=== PATIENT | male | born 1980 | race Caucasian/White ===

== ENCOUNTER → 2017-01-26 | Outpatient (CLI) | payer BC ==
--- NOTE | 2017-01-26 17:03 | PCVCIMAG ---
APPROVED REPORT Study performed: 01/26/2017 14:51:18 EXAM: Comprehensive 2D, Doppler, and color-flow Echocardiogram Status: routine BSA: 2.47 HR: 75 bpmBP: 100/68 mmHg Rhythm: NSR Indications Murmur 2D Dimensions LVEF(%): 77.90 (>50%) IVSd: 11.19 (7-11mm)LVOT Diam: 23.47 (18-24mm) LVDd: 57.81 mm PWd: 12.22 (7-11mm) LVDs: 30.54 (25-40mm) Left Atrium: 44.83 (27-40mm) Aortic Root: 34.73 mm Smith's LVEF: 77.90 % Volumes Left Atrial Volume (Systole) Single Plane 4CH: 61.75 mLSingle Plane 2CH: 97.39 mL LA ESV Index: 32.00 mL/m2 Aortic Valve AoV Peak Eddy.: 1.39 m/s AO Peak Gr.: 7.72 mmHg Mitral Valve E/A Ratio: 1.3 MV Decel. Time: 169.42 ms MV E Max Eddy.: 1.20 m/s MV A Eddy.: 0.89 m/s Left Ventricle The left ventricle is normal size. There is normal LV segmental wall motion. There is normal left ventricular wall thickness. Left ventricular systolic function is normal. The left ventricular ejection fraction is within the normal range. LVEF is 60-65%. The left ventricular diastolic function is normal. Right Ventricle The right ventricle is normal size. The right ventricular systolic function is normal. Atria The left atrium size is normal. The right atrium size is normal. Aortic Valve The aortic valve is normal in structure trileaflet No aortic regurgitation is present. There is no aortic valvular stenosis. Mitral Valve Posterior mitral leaflet prolapse Moderately severe to severe eccentric mitral regurgitation. No evidence of mitral valve stenosis. Tricuspid Valve The tricuspid valve is normal in structure. There is no tricuspid valve regurgitation noted. Pulmonic Valve The pulmonary valve is normal in structure. There is no pulmonic valvular regurgitation. Great Vessels The aortic root is normal in size. IVC is normal in size and collapses with >50% inspiration Pericardium There is no pericardial effusion. <Conclusion> Left ventricular systolic function is normal. There is normal LV segmental wall motion. LVEF 60-65%. The aortic valve is normal in structure, trileaflet. No aortic regurgitation or stenosis Posterior mitral leaflet prolapse. Eccentric, probably moderately severe to severe regurgitation Pulmonary artery pressure could not be reliably ascertained There is no pericardial effusion.
== END | disposition home or self-care (01) ==
LOC: PCVCIMAG 14:47
PROVIDERS: ATTEND Internal Medicine
DX: I34.0 Nonrheumatic mitral (valve) insufficiency (principal); R01.1 Cardiac murmur, unspecified
CPT/HCPCS: 93306

== ENCOUNTER → 2017-02-10 | Outpatient (CLI) | payer BC | END | disposition home or self-care (01) | LOC: PCVCIMAG 15:07 | DX: I34.0 Nonrheumatic mitral (valve) insufficiency (principal) | CPT/HCPCS: 93017 ==

== ENCOUNTER → 2017-11-17 | Outpatient (CLI) | payer BC ==
[~2017-11-17] MED LIST: DIAZEPAM 10 MG TABLET. ONE; IOHEXOL 350 MG/ML 100 ML VIAL. ONE; IOHEXOL 350 MG/ML 50 ML VIAL. ONE; IV NORMAL SALINE 1000ML BAG 1,000 ML ONE; LIDOCAINE 1% Multi-Dose 50 ML VIAL. ONE; MIDAZOLAM HCL/PF 2 MG/2 ML VIAL. ONE; fentaNYL PF VIAL 100 MCG/2 ML VIAL ONE
--- NOTE | 2017-11-17 09:39 | PCVCIMAG ---
APPROVED REPORT Study performed: 11/17/2017 08:52:05 EXAM: Comprehensive 2D, Doppler, and color-flow Echocardiogram Patient Location: Echo lab Status: routine BSA: 2.21 HR: 71 bpmBP: 132/80 mmHg Rhythm: NSR Other Information Study Quality: Adequate Indications Pre-Op Mitral Valve Prolapse Murmur mitral regurgitation 2D Dimensions IVSd: 12.28 (7-11mm) LVDd: 60.32 mm PWd: 11.46 (7-11mm) LVDs: 43.05 (25-40mm) Left Atrium: 44.45 (27-40mm) Aortic Root: 32.94 mm LV Single Plane 4CH: 55.78 % LV Single Plane 2CH: 55.74 % Biplane EF: 56.9 % Volumes Left Atrial Volume (Systole) Single Plane 4CH: 130.23 mLSingle Plane 2CH: 138.59 mL LA ESV Index: 62.00 mL/m2 Aortic Valve AoV Peak Eddy.: 1.18 m/s AO Peak Gr.: 5.55 mmHgLVOT Max P.31 mmHg LVOT Max V: 0.91 m/s Mitral Valve MV Peak Gr.: 6.11 mmHg MV Mean Gr.: 1.94 mmHgE/A Ratio: 2.3 MV Decel. Time: 264.74 ms MV E Max Eddy.: 1.42 m/s MV A Eddy.: 0.61 m/s MV Max Eddy.: 5.02 m/s MV Mean Eddy.: 3.77 m/s MV VTI: 369.48 mm MV PHT: 73.61 ms MVA (PHT): 2.99 cm2 IVRT: 110.73 ms Pulmonary Valve PV Peak Eddy.: 0.80 m/sPV Peak Gr.: 2.56 mmHg Pulmonary Vein P Vein S: 0.35 m/sP Vein A: 0.32 m/s P Vein D: 0.64 m/sP Vein A Dur.: 124.6 msec P Vein S/D Ratio: 0.55 Tricuspid Valve TR Peak Dedy.: 2.23 m/s TR Peak Gr.: 19.97 mmHg Left Ventricle Left ventricle is borderline dilated. There is normal LV segmental wall motion. Borderline concentric left ventricular hypertrophy. Left ventricular systolic function is normal. The left ventricular ejection fraction is within the normal range. LVEF is 55-60%. The left ventricular diastolic function is normal. Right Ventricle The right ventricle is normal size. The right ventricular systolic function is normal. Atria Left atrium is dilated. The right atrium size is normal. Aortic Valve The aortic valve is normal in structure. No aortic regurgitation is present. There is no aortic valvular stenosis. Mitral Valve Posterior mitral valve prolapse with severe, eccentric regurgitation. No evidence of mitral valve stenosis. Tricuspid Valve The tricuspid valve is normal in structure. Trace tricuspid regurgitation with PAP of 27 mmHg. Pulmonic Valve The pulmonary valve is normal in structure. There is mild pulmonic valvular regurgitation. Great Vessels The aortic root is normal in size. IVC is normal in size and collapses >50% with inspiration. Pericardium There is no pericardial effusion. There is no pleural effusion. <Conclusion> Left ventricular systolic function is normal. There is normal LV segmental wall motion. LVEF 55-60%. LVSD 4.3cm The left ventricular diastolic function is normal. Left atrium is dilated. Posterior mitral valve prolapse with severe, eccentric regurgitation. The aortic valve is normal in structure. No aortic regurgitation or stenosis Trace tricuspid regurgitation with pulmonary artery pressure of 27 mmHg. There is no pericardial effusion.
--- NOTE | 2017-11-17 16:33 | PCVCINTER ---
APPROVED REPORT Study performed: 11/17/2017 12:09:25 Patient Details Patient Status: Out-Patient Room #: 3 The patient is a 37 year-old Male Event Personnel Luisana Pope MD, Trav Robledo RT(R), Aime Barajas RN, Nora Ritter RT(R)() Risk Factors Dysplipidemia (Type: 0), Last Creatanine 1.2Tobacco History (Never) Previous Procedures/Diagnoses Valvular heart disease Procedure Narrative The patient was brought electively to the Cardiac Catheterization Laboratory and was prepped and draped in a sterile manner. A Right Heart Catheterization was performed with a 7 Fr. [place]-Dipesh catheter and pressure were recorded. Cardiac outputs were obtained by the Thermal DilutionFick and Thermal Dilution method. A 6F sheath was inserted into the right femoral artery. Coronary angiography was performed using coronary diagnostic catheters. The right coronary system was accessed and visualized with a JR4 catheter. The left coronary system was accessed and visualized with a JL4 catheter. The left ventricle was accessed and visualized with a Angled Pigtail catheter. Left ventricular/Aortic Valve gradient assessed via catheter pullback. Left ventriculogram was performed in GUIDRY projection. Closure device was deployed with a 6 Fr Mynx. Hemostasis was obtained with manual pressure following sheath removal without any complications. The patient tolerated the procedure well and there were no complications associated with the procedure. There was no hematoma. Coronary Angiography The patient's coronary anatomy is right dominant. 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 Subselective engagement of the right coronary despite multiple catheters to selectively engage displayed an angiographically normal right coronary. Coronary CTA will be ordered to confirm the absence of coronary disease and the course of the proximal right coronary prior to mitral valve surgery. Left Ventriculography The left ventricle is normal in size with normal contractility. The left ventricular ejection fraction is estimated to be 55-60%. Left ventricular wall motion abnormalities are not present. There is severe mitral insufficiency. Hemodynamics The right atrial mean pressure is 6 mmHg. The right ventricular pressure is 26/3 mmHg. The pulmonary artery pressure is 31/15 mmHg with a mean of 21 mmHg. The mean pulmonary capillary wedge pressure is 15 mmHg. The aortic pressure is 109/76 mmHg with a mean of 91 mmHg. The left ventricular pressure is 102/2 mmHg with a mean of 13 mmHg. The cardiac output and index were assessed using Thermalthermodilution. The cardiac output using thermo method is 5.14 L/min. The cardiac index using thermo method is 2.3 L/min/m2. Conclusion 1. Normal left ventricular systolic function. Ejection fraction 55%. Severe mitral insufficiency. 2. Normal left main, LAD, and circumflex 3. Anomalous right coronary. Supravalvular aortography was performed to isolate the origin of the right coronary. The proximal ascending aorta was normal. No aortic insufficiency. 4. Normal right heart pressures Recommendations Valve Surgery
== END | disposition home or self-care (01) ==
LOC: PCVCIMAG 11:27
PROVIDERS: ATTEND Internal Medicine
DX: I34.1 Nonrheumatic mitral (valve) prolapse (principal); I34.0 Nonrheumatic mitral (valve) insufficiency
CPT/HCPCS: 93306; 93460; 93567; C1751; C1760; C1769; C1894; J1644; J2250; J3010; J7030; Q9967; 99152; 99153